=== PATIENT | male | born 1955 | race Caucasian/White ===

== ENCOUNTER → 2025-07-25 14:17 | Outpatient (REF) | payer MEDICARE, SELFPAY | LOC: HWRAD 14:17 | PROVIDERS: ATTENDING PHYSICIAN Specialist; FAMILY PHYSICIAN Physician Assistant Medical | DX: R33.9 Retention of urine, unspecified (principal); N18.30 Chronic kidney disease, stage 3 unspecified | CPT/HCPCS: 76770 ==